=== PATIENT | female | born 1965 | race Caucasian/White ===

== ENCOUNTER 2018-10-02 06:26 | Day surgery (SDC) | payer OTHER ==
[2018-09-29 11:04] LABS: Urine Appearance CLEAR; Urine Bilirubin NEGATIVE (NEG); Urine Blood NEGATIVE (NEG); Urine Color YELLOW; Urine Glucose NEGATIVE (NEG); Urine Protein NEGATIVE (NEG); Urine Urobilinogen 0.2 mg/dL (0.2-1.0); Urine pH 6.5 (5.0-7.0)
[2018-09-29 11:07] LABS: Absolute Lymphocytes (CBC) 3.6 K/uL (0.7-4.9); Basophils % 0.4 % (0-1.3); Hematocrit 42.2 % (36.0-45.0); Lymphocytes % 39.7 % (15.3-44.8); MPV 9.3 fL (7.6-11.3); RBC Red Blood Cell Count 4.67 M/uL (3.86-4.86)
[2018-09-29 11:08] LABS: Urine Microscopic Reflex NO UMIC
[2018-10-02 06:48] LABS: Specific Gravity >= 1.030 (1.005-1.030)
[2018-10-02] MEDS ORDERED: MIDAZOLAM HCL 2 MG/2 ML INJ ONE (06:55)
[2018-10-02] MEDS ORDERED: FENTANYL CITR 250 MCG/5 ML ONE (06:55)
[2018-10-02] MEDS ORDERED: PROPOFOL 200 MG/20 ML VIAL IV ONE (06:55)
[2018-10-02] MEDS ORDERED: ROCURONIUM 50 MG/5 ML VIAL IV ONE (06:55)
[2018-10-02] MEDS ORDERED: LIDOCAINE 2% MPF 5 ML VIAL ONE (06:55)
[2018-10-02] MEDS ORDERED: dexAMETHasone 10 MG/ML VIAL ONE (06:56)
[2018-10-02] MEDS ORDERED: ONDANSETRON 4 MG/2 ML VIAL ONE (06:56)
[2018-10-02] MEDS ORDERED: KETOROLAC 30 MG/ML INJ ONE (06:56)
[2018-10-02] MEDS ORDERED: SCOPOLAMINE HYDROBROMIDE PATCH TD ONE (07:00)
[2018-10-02] MEDS ORDERED: Ringers Lactate 1,000 ML IV ONE (07:00)
[2018-10-02] MEDS ORDERED: CEFAZOLIN/SWI 2gm 2 GM/20 ML SYR ONE (07:00)
[2018-10-02] MEDS ORDERED: NA CHLORIDE 0.9% 100 ML IV ONE (07:13)
[2018-10-02] MEDS ORDERED: CEFAZOLIN/SWI 1gm 1 GM/10 ML SYR ONE (07:13)
[2018-10-02] MEDS ORDERED: NS 0.9% VIAL 20 ML ONE (08:19)
[2018-10-02] MEDS ORDERED: Phenylephrine HCl 10 MG/ML 1 ML VIAL ONE (08:20)
[2018-10-02] MEDS ORDERED: VECURONIUM 10 MG/VIAL IV ONE (08:23)
[2018-10-02] MEDS ORDERED: MEPERIDINE HCL 25 MG/0.5 ML ONE (09:00)
[2018-10-02] MEDS ORDERED: NS 0.9% VIAL 10 ML ONE (09:01)
[2018-10-02] MEDS: Ringers Lactate 1,000 ML IV ONE ×4 (09:02→10:36)
[2018-10-02] MEDS: VASOPRESSIN 20 UNIT/ML VIAL ONE ×2 (10:20→10:27)
[2018-10-02] MEDS ORDERED: GLYCOPYRROLATE 0.2 MG/ML SYR ONE (10:31)
[2018-10-02] MEDS ORDERED: NEOSTIGMINE 1 MG/ML -10 ML VIAL ONE (10:33)
[2018-10-02] MEDS ORDERED: IBUPROFEN 200 MG TAB PO ONE (13:35)
[2018-10-02] MEDS ORDERED: IBUPROFEN 400 MG TAB ONE (13:36)
[2018-10-02] MEDS ORDERED: PROMETHAZINE 25 MG TABLET ONE (14:56)
[2018-10-02] MEDS ORDERED: PROMETHAZINE 25 MG TABLET PO ONE (15:00)
--- NOTE | 2018-10-02 22:24 | OP ---
Date of Procedure: 10/02/2018 Surgeon: Shanna Deng MD Paper Maker: Ginger Beltrán. Preoperative Diagnoses: Menorrhagia, uterovaginal prolapse, and stress urinary incontinence. Postoperative Diagnoses: Menorrhagia, uterovaginal prolapse, stress urinary incontinence, and right hydrosalpinx. Procedures Performed: Total laparoscopic hysterectomy, bilateral salpingectomy, uterosacral ligament colpopexy and cystoscopy, attempted mid urethral sling, obturator approach, not complete. Anesthesia: General endotracheal. Estimated Blood Loss: Minimal. Specimens: Uterus and bilateral tubes, right tube with distal large cystic structure about 4 to 5 cm . Complications: No complications. Drains: None. Condition: Stable. Findings: Patient is POP-Q with -1 0, -2 5 cm and moderate 7, -2, -2, -3. On cystoscopy, both urete rs were patent and had strong jets of urine from them. There was a right distal tubal cyst. Ovaries were completely unremarkable on both sides. Indications: A 53-year-old female presented with heavy bleeding, severe dysmenorrhea. Transvaginal ultrasound performed with fibroid about 2.3 cm and in the right adnexa there appeared to be multiple cysts, 2 cm, 3.7 cm, 2.5 cm, and another 2.5 cm cyst. The left adnexa had 2 normal simple cysts, so we did endometrial sampling with hysteroscopy, D and C, and there was disordered proliferative endome trium. No evidence of atypia or malignancy. Discussed about the multiple options for the patient, s he later complained about her stress incontinence as well as vaginal prolapse. Her stress urinary in continence symptoms were mild and so we discussed about the urodynamics results. Plan was to perform mid urethral transobturator sling, possibly with repair of prolapse that the stress incontinence cou ld get worse. On discussing the options for fixation of the vaginal bulge which was the apical and a nterior prolapse, discussed about uterosacral ligament suspension, colpopexy. The risks were explain ed to the patient including all the risks of hysterectomy, including bleeding, infection, injury to t he bowel, bladder, and ureters, she was consented and taken to the OR. Description Of Procedure: She has rash with penicillin, so we gave her Ancef 2 g. A test dose of 10 0 g was given and 20 minutes later the rest of the 2 g was pushed. Patient was placed in a supine fa shion on the operating table, general anesthesia was given, she was placed in a dorsal lithotomy posi tion using Amauri stirrups. Arms tucked by the side. Pelvic exam was performed, uterus anteflexed an d enlarged. No adnexal masses. There was prolapse and POP-Q as above. Abdomen, vulva, vagina, and perineum were prepped and draped in a sterile fashion. Schrader was placed to drain the bladder and att ached to cysto tubing to LR bag, emptied 300 and left to drain on the floor. A large VCare fixed in place. 1 cm infraumbilical incision was made with a scalpel using the open laparoscopy technique. Fascia wa s then incised and tagged with 0 Vicryl sutures. Peritoneum entered bluntly as retractors were place d. Site of entry was checked, unremarkable. Upper abdominal surfaces, gallbladder, liver all unrema rkable. Patient was placed in Trendelenburg position. Uterus appeared to be enlarged. The right tu be distally had a large cyst. Ovary completely normal. Pictures were taken. Patent right internal inguinal ring was seen, but no base hernia, less than a centimeter in diameter. 5 mm left lower quad rant and right lower quadrant port ports were placed. Suprapubic incision was made 1 cm and trocars were placed under direct vision. The epiploicae of the sigmoid colon were pulled up with a 0 Monocry l through the left upper quadrant incisions with the Balaji-Jaziel needle and retracted with the he mostats. After the pelvis was cleared up, both the ureters were traced from the pelvic brim to the u reteric tunnel. The uterosacral ligaments were identified. No anatomical distortion. LigaSure 5 mm Ina was taken and mesosalpinx tube, uteroovarian ligament, round ligament were all taken down. Anterior broad ligament was opened up and the bladder peritoneum was raised all the way to the opposite round ligament. Bladder was dissected inferiorly. VCare cup was cleared up posterio rly. Peritoneum was taken down to the uterosacral on the left and then on the right. Then the broad ligament was taken down and vessels were skeletonized. Vesicovaginal space was entered after incisi ng the precervical fascia areolar tissue and fat down the bladder was also dissected down about 3-4 c m anteriorly in the midline. Once this was done and the bladder flap was cleared up, then incisions were made with the monopolar hook blade medial to the vessels on the right side, then bipolar basket tip was used to take down the vessels and then taken down with the LigaSure, then cardinal ligaments were taken down as well. Opposite side similar dissection was performed. Then, circumferential colp otomy was performed with a monopolar hook blade and the specimen detached and removed through the vag yana. The tubes were dissected both, the left which is normal was pulled out through the suprapubic trocar and the right with the mass was pulled out through the vagina carefully without rupturing it and hand ed off for permanent pathology. The ovaries were completely intact and did not need any ovariopexy, so they were left in place, pictu res were taken. Thorough irrigation and suction of the vaginal cuff was performed with normal saline . Then closure was performed with 0 Vicryl sutures x5. Two simple sutures at both angles tied outsi de the angles and 3 [id number] in the middle bring together the entire vaginal epithelium to t he fascia all together. Then 0 PDS suture was taken and after identifying the uterosacral ligament a pproximately about 7 cm from the attachment distally to the vaginal apex, this was picked up and plic ated with the suture. 2 passes were taken, 3rd passed through the distal uterosacral into the rectov aginal septum and then anterior precervical fascia. The suture tied down similarly on the opposite s scott. Plication was performed fixating the uterosacral to the anterior and posterior gonsalez. Once thi s was done, there was excellent support. No other problems were seen. Thorough irrigation and sucti on were performed, trocars were removed under direct vision. Cystoscopy was performed with a 17-Fren ch sheath, 30-degree lens and normal saline. Both ureteric orifices had normal jets of urine and the y were brisk. No evidence of any bladder trauma or tumors. Bladder was drained out. Vaginoscopy wa s performed. I went ahead and placed the patient in a Trendelenburg position, markings were placed for the exit po ints of the TVT-O. Once I viewed vaginally the prolapse anterior wall was significantly lifted up, b ut there was no evidence of any urethral prolapse at this time, appeared to be well suspended, so I w as not able to discern any urethral descend at this time and appeared to be not hypermobile since it was suspended up, however, since we discussed about the mid urethral sling attempted mid urethral obt urator transobturator dissection, 10 mL of vasopressin diluted was injected in the midline and on the lateral aspects. Then after making a 1 cm vaginal epithelial incision in the suburethral area and t he mid section of the urethra, Allis clamps were placed on each side. Dissection was performed along the direction of the ipsilateral shoulder, hugging the inferior pubic ramus obturators space was ent ered on the opposite side, similar dissection was performed, however, obturators space was very diffi cult to enter as the vaginal fornix on the lateral aspect was so fixated that I could not get past th is without perforating the vagina. Once I did do that with gentle push spread technique, it was diff icult for me to negotiate the angle to dip below the inferior pubic ramus to get into the obturator s pace, so at this time I aborted the procedure because transobturator approach is not a feasible optio n and unsure about retropubic option. She was not counseled about the retropubic option. I decided that we would come back and see if the patient is symptomatic postoperatively that retropubic sling c an be placed. The incision was closed with the help of a continuous running locked 3-0 Vicryl suture . There was excellent hemostasis. Cystoscopy was performed, no evidence of any trauma here in the b ladder. The scope was pulled out. Schrader was left out. Instrument, needle, and sponge counts were d one and were correct at the end of the case. Patient tolerated the procedure well. She will follow up with me in 1 week, then we will see how her stress incontinence symptoms are and if she has signif icant symptoms maybe after 3 weeks we can go ahead and perform a sling and at this time I would do a retropubic sling. KYRIE/JOSE ALEJANDRO Voice ID: [id number] Report ID: [id number]
== END 2018-10-02 13:28 | disposition home or self-care (01) ==
LOC: OR 06:26
PROVIDERS: ATTEND Obstetrics & Gynecology
PROC: 0UT74ZZ Resection of Bilateral Fallopian Tubes, Percutaneous Endoscopic Approach (ICD-10-PCS; 2018-10-02)
PROC: 0USG7ZZ Reposition Vagina, Via Natural or Artificial Opening (ICD-10-PCS; 2018-10-02)
PROC: 0TSD0ZZ Reposition Urethra, Open Approach (ICD-10-PCS; 2018-10-02)
PROC: 0UT94ZZ Resection of Uterus, Percutaneous Endoscopic Approach (ICD-10-PCS; principal; 2018-10-02 07:30)
DX: N92.1 Excessive and frequent menstruation with irregular cycle (principal); N81.2 Incomplete uterovaginal prolapse; N39.3 Stress incontinence (female) (male); N70.11 Chronic salpingitis; N83.8 Other noninflammatory disorders of ovary, fallopian tube and broad ligament; D25.9 Leiomyoma of uterus, unspecified; N80.0 Endometriosis of uterus; N95.1 Menopausal and female climacteric states; I10 Essential (primary) hypertension; K59.00 Constipation, unspecified; F32.9 Major depressive disorder, single episode, unspecified; F17.210 Nicotine dependence, cigarettes, uncomplicated; Z88.0 Allergy status to penicillin; Z88.6 Allergy status to analgesic agent; Z80.1 Family history of malignant neoplasm of trachea, bronchus and lung; Z80.0 Family history of malignant neoplasm of digestive organs; Z82.49 Family history of ischemic heart disease and other diseases of the circulatory system
CPT/HCPCS: 58571; 57283; 57288; 85025; 36415; 86900; 86850; 81025; 86901; 88307; 81003; J2704; J2710; J2370; J2250; J3010; J1100; J2175; J0690 ×2; J2405